=== PATIENT | female | born 1990 | race Caucasian/White ===

== ENCOUNTER 2016-09-22 18:18 | Observation (INO) | payer SELFPAY ==
[~2016-09-22 18:18] MED LIST: IBUPROFEN800 M1 PO; NO HOME MEDICATION; PRENATAL TABLE1 EAC3 PO
[2016-09-22 20:32] LABS: BASO % 0.1 % (0-2); EOS % 0.7 % (0-7); EOSINOPHIL ABSOLUTE COUNT 0.1 tho/cmm (0.0-0.7); HCT-HEMATOCRIT 36.2 % (34.0-49.0); HGB-HEMOGLOBIN 13.1 gm/dl (12.0-15.5); IMMATURE GRANULOCYTES ABSOLUTE 0.01 tho/cmm (0-0.03); IMMATURE GRANULOCYTES PERCENT 0.1 % (0-0.3); LYMPH % 23.1 % (20-45); MCH (MEAN CORPUSCULAR HGB) 33.6 pg (28.0-32.0); MCHC MEAN CORPUSCULAR HGB CONC 36.2 % (32.0-36.0); MCV (MEAN CELL VOLUME) 92.8 fl (82.0-96.0); MEAN PLATELET VOLUME 9.8 cmc (9.4-12.4); MONO % 5.4 % (0-12); MONOCYTE ABSOLUTE COUNT 0.5 tho/cmm (0.0-1.2); NEUTROPHIL ABSOLUTE COUNT 6.1 tho/cmm (1.6-8.0); NEUTROPHIL-AUTOMATED 6.1 tho/cmm (1.6-8.0); NEUTROPHILS % 70.6 % (40-80); PLATELET COUNT 149 tho/cmm (150-450); WHITE BLOOD COUNT 8.6 tho/cmm (4.0-10.0)
[2016-09-22 20:54] LABS: TSH-THYROID STIMULATING HORM. 1.37 uIU/ml (0.40-3.80)
[2016-09-23] MEDS ORDERED: IBUPROFEN800 M1 PO (11:50)
[2016-09-23] MEDS ORDERED: METHERGINE0.2 M1 PO (12:17)
[2016-09-23] MEDS ORDERED: LEXAPRO10 M2 PO (12:18)
[2016-09-23] MEDS ORDERED: NORCO 5-325 TA1 EACH PO (12:22)
== END 2016-09-23 15:13 ==
LOC: LDR 18:18
PROVIDERS: ADMIT Advanced Practice Midwife
DX: O02.1 Missed abortion (principal)